=== PATIENT | male | born 1995 | race Caucasian/White ===

== ENCOUNTER 2018-10-12 15:19 | Inpatient (IN) | payer OTHER ==
[~2018-10-12] VITALS: Ht 167.6 cm; Wt 60.3 kg
[2018-10-12] MEDS ORDERED: HYDROCODONE/ACETAMINOPHEN 5/325MG TABLET PO ONE (18:15)
[2018-10-12] MEDS ORDERED: TETANUS, DIPHTHERIA, PERTUSSIS VAC/PF 0.5ML (>7YR OLD) IM ONE (18:15)
[2018-10-12] MEDS ORDERED: CEFAZOLIN 1000MG PREMIX 50 ML IV ONE (19:15)
[2018-10-12] MEDS ORDERED: MORPHINE SULFATE 4 MG/ML CPJ (NOT FOR IM USE) IV ONE (22:45)
[2018-10-13] MEDS ORDERED: MORPHINE SULFATE 4 MG/ML CPJ (NOT FOR IM USE) IV ONE (07:00)
[2018-10-13 12:00] VITALS: BP 109/60
[2018-10-13 13:33] LABS: CHLORIDE 103 mEq/L (98-107)
[2018-10-13 13:45] LABS: BASOPHILS % 0.3 % (0.0-2.0); EOSINOPHILS % 0.7 % (0.0-5.0); HEMATOCRIT. 43.6 % (42.0-52.0); HEMOGLOBIN. 14.8 g/dL (14.0-18.0); LYMPHOCYTES % 27.3 % (20.0-50.0); MEAN CORPUSCULAR HEMOGLOBIN 27.7 pg (28.0-32.0); MEAN CORPUSCULAR VOLUME 81.7 fL (80.0-94.0); MEAN PLATELET VOLUME 8.2 fl (7.4-10.4); MONOCYTES % 13.4 % (2.0-8.0); NEUTROPHILS % 58.3 % (40.0-76.0); PLATELET 189 x1000/uL (130-400); RED BLOOD CELL COUNT 5.33 mill/uL (4.7-6.1); RED CELL DISTRIBUTION WIDTH 13.4 % (11.6-14.6)
[2018-10-13 14:00] VITALS: BP 110/70
[2018-10-13 16:00] VITALS: BP 108/48
[2018-10-13] MEDS ORDERED: DIPHENHYDRAMINE 50MG/ML VIAL IV PRN (16:45)
[2018-10-13] MEDS ORDERED: IPRATROPIUM/ALBUTEROL 0.5-3(2.5)MG/3ML NEB INH PRN (16:45)
[2018-10-13] MEDS ORDERED: ACETAMINOPHEN 325MG TABLET PO PRN (16:45)
[2018-10-13] MEDS ORDERED: ONDANSETRON HCL 4MG/2ML INJ IV PRN (16:45)
[2018-10-13] MEDS: SODIUM CHLORIDE 0.9% 1,000 ML IV SCH (17:58)
[2018-10-13] MEDS: MORPHINE SULFATE 2 MG/ML CPJ (NOT FOR IM USE) IV PRN (17:59)
[2018-10-13 20:00] VITALS: BP 97/57
[2018-10-13 23:13] LABS: PHOSPHORUS 2.5 mg/dL (2.5-4.9)
[2018-10-14] VITALS: BP 101/54
[2018-10-14] MEDS: NEOMY SULF/BACITRAC ZN/POLY OINT 28GM TOP SCH ×4 (01:59→22:20)
[2018-10-14 04:00] VITALS: BP 102/75
[2018-10-14] MEDS: MORPHINE SULFATE 2 MG/ML CPJ (NOT FOR IM USE) IV PRN (06:29)
[2018-10-14 07:58] LABS: CHLORIDE 105 mEq/L (98-107)
[2018-10-14 08:00] VITALS: BP 108/54
[2018-10-14 08:00] LABS: BASOPHILS % 0.5 % (0.0-2.0); EOSINOPHILS % 2.5 % (0.0-5.0); HEMATOCRIT. 41.8 % (42.0-52.0); HEMOGLOBIN. 14.3 g/dL (14.0-18.0); MEAN CORPUSCULAR HEMOGLOBIN 27.7 pg (28.0-32.0); MEAN CORPUSCULAR VOLUME 81.2 fL (80.0-94.0); MEAN PLATELET VOLUME 8.2 fl (7.4-10.4); MONOCYTES % 13.5 % (2.0-8.0); NEUTROPHILS % 54.5 % (40.0-76.0); PLATELET 168 x1000/uL (130-400); RED BLOOD CELL COUNT 5.15 mill/uL (4.7-6.1); RED CELL DISTRIBUTION WIDTH 13.2 % (11.6-14.6)
[2018-10-14 08:06] LABS: LDL CHOLESTEROL 70 mg/dL (5-100)
[2018-10-14 08:07] LABS: HDL CHOLESTEROL 52 mg/dL (40-59)
[2018-10-14] MEDS: SODIUM CHLORIDE 0.9% 1,000 ML IV SCH (08:44)
[2018-10-14 12:00] VITALS: BP 113/55
[2018-10-14] MEDS: CEFAZOLIN 1000MG PREMIX 50 ML IV SCH ×2 (14:12→22:16)
[2018-10-14 16:00] VITALS: BP 111/57
[2018-10-14 20:00] VITALS: BP 109/48
[2018-10-15] VITALS: BP 96/42
[2018-10-15 04:00] VITALS: BP 110/64
[2018-10-15] MEDS: CEFAZOLIN 1000MG PREMIX 50 ML IV SCH ×2 (05:27→13:07)
[2018-10-15] MEDS: NEOMY SULF/BACITRAC ZN/POLY OINT 28GM TOP SCH ×2 (05:27→13:07)
[2018-10-15] MEDS: SODIUM CHLORIDE 0.9% 1,000 ML IV SCH (05:28)
[2018-10-15 06:25] LABS: CHLORIDE 106 mEq/L (98-107)
[2018-10-15 06:39] LABS: BASOPHILS % 0.6 % (0.0-2.0); HEMATOCRIT. 42.1 % (42.0-52.0); HEMOGLOBIN. 14.6 g/dL (14.0-18.0); LYMPHOCYTES % 37.7 % (20.0-50.0); MEAN CORPUSCULAR HEMOGLOBIN 28.2 pg (28.0-32.0); MEAN CORPUSCULAR VOLUME 81.6 fL (80.0-94.0); MEAN PLATELET VOLUME 8.5 fl (7.4-10.4); MONOCYTES % 13.1 % (2.0-8.0); NEUTROPHILS % 45.6 % (40.0-76.0); PLATELET 185 x1000/uL (130-400); RED BLOOD CELL COUNT 5.16 mill/uL (4.7-6.1)
[2018-10-15 08:00] VITALS: BP 93/48
[2018-10-15 11:47] VITALS: BP 103/38
[2018-10-15 12:49] VITALS: BP 103/38
== END 2018-10-15 14:11 | disposition home or self-care (01) | DRG 563 ==
LOC: ER 16:31 → 6EST 10-13 11:13 → ENRESERV 10-13 11:22
PROVIDERS: ADMIT Internal Medicine; ATTEND Internal Medicine
DX: S92.323A Displaced fracture of second metatarsal bone, unspecified foot, initial encounter for closed fracture (principal); V29.9XXA Motorcycle rider (driver) (passenger) injured in unspecified traffic accident, initial encounter; Y93.89 Activity, other specified; Y92.89 Other specified places as the place of occurrence of the external cause; Y99.8 Other external cause status; V89.2XXA Person injured in unspecified motor-vehicle accident, traffic, initial encounter
CPT/HCPCS: 36415; 73562; 73630; 73700; 80048; 80061; 83735; 84100; 84443; 86850; 86900; 90715; 96374; 97161; 97166; 97535; 99285; J0690; J2270; J7030